=== PATIENT | male | born 1960 | race Caucasian/White ===

== ENCOUNTER 2019-03-08 12:31 | Emergency (ER) | payer OTHER ==
[~2019-03-08] VITALS: Ht 172.7 cm; Wt 79.4 kg
[2019-03-08 12:35] VITALS: BP_SYST 132
--- NOTE | 2019-03-08 12:40 | NUR ---
Patient to ER bed 2 to gown for evaluation. Side rails up. Report given to Katerin
--- NOTE | 2019-03-08 12:42 | NUR ---
Pt brought by self, A&Ox4, pt presents to ER with one episode of chest pressure prior arrival, pt states pressure started in the tongue, no chest retractions noted, skin pink and warm, cap refill <3, pt VSS, pt given Nitro and aspirin, will cont to monitor
--- NOTE | 2019-03-08 12:50 | NUR ---
Dr Mack at bedside examining patient
[2019-03-08 13:36] LABS: EOSINOPHILS # (AUTO) 0.2 K/uL (0.0-0.4); EOSINOPHILS % (AUTO) 2.3 % (0.0-4.0); HEMATOCRIT 42.3 % (36-54); HEMOGLOBIN 14.1 g/dL (14.0-18.0); LYMPHOCYTES # (AUTO) 2.7 K/uL (1.0-5.5); MEAN CORPUSCULAR HEMOGLOBIN 29 pg (27-31); MEAN CORPUSCULAR HGB CONC 33 % (32-36); MEAN CORPUSCULAR VOLUME 88 fL (79.0-98.0); MONOCYTES # (AUTO) 1.6 K/uL (0.0-1.0); MONOCYTES % (AUTO) 15.2 % (1.7-9.3); PLATELET COUNT (AUTO) 202 K/uL (130-430); RED BLOOD CELL COUNT(AUTO) 4.84 MIL/uL (4.2-6.2); RED CELL DISTRIBUTION WIDTH 14.9 % (9.0-15.0); WHITE BLOOD COUNT (AUTO) 10.7 K/uL (4.8-10.8)
--- NOTE | 2019-03-08 13:45 | NUR ---
Pt A&Ox4, VSS, respirations even and unlabored
[2019-03-08 13:48] LABS: CALCIUM 8.7 mg/dL (8.4-11.0); CREATININE 1.68 mg/dL (0.55-1.30); POTASSIUM 3.3 mmol/L (3.5-5.1)
[2019-03-08 13:54] LABS: ALBUMIN 3.4 g/dL (3.4-4.8); TOTAL BILIRUBIN 0.6 mg/dL (0.0-1.0)
[2019-03-08 14:04] LABS: BASOPHILS % (AUTO) 0.1 % (0.0-2.0)
[2019-03-08 14:06] LABS: NEUTROPHILS % (AUTO) 57.4 % (40.0-70.0)
[2019-03-08 14:08] LABS: INR 0.9 (0.80-1.20); PROTHROMBIN TIME 9.5 SECS (9.5-12.5)
--- NOTE | 2019-03-08 16:58 | NUR ---
Nitro 0.4 mg given sublingual x 1 for blood pressure management
[2019-03-08] MEDS ORDERED: NITROGLYCERIN 0.4 MG TAB.SUBL SL ONE (17:00)
[2019-03-08] MEDS ORDERED: ASPIRIN 325 MG TABLET PO ONE (17:00)
--- NOTE | 2019-03-08 17:05 | NUR ---
PER DR. PINO AND [facility] DOC SEND TO [facility] ER FOR CONFIRMATION FOR POSSIBLE STEMI. FAXED EKG : 1708 CALLED [facility]: 1701 -[facility] ER DOC IS REVIEWING EKG'S. -DR. VALDIVIA, [facility] DOC HAS PAGED BACK TO SPEAK TO DR. PINO REGARDING PT STATUS @4032
--- NOTE | 2019-03-08 17:07 | NUR ---
Pt BP decreased to 153/96 to 147/82 after Nitro administration .
--- NOTE | 2019-03-08 17:13 | NUR ---
Per Dr. Mack, the doc from [facility] will speak with the planning analyst at [facility] regarding pt ekg's.
--- NOTE | 2019-03-08 17:26 | NUR ---
TRANSFER INFO [facility] ED Report: [phone] Accepting: Dr. Wren NON-STEMI, but they would like to take pt to [facility] facility. spoke to jass
--- NOTE | 2019-03-08 17:45 | NUR ---
Called [facility] for transport set up. stated that a [place] doc will page back to speak to dr. dyer. spoke to shadia
--- NOTE | 2019-03-08 18:01 | NUR ---
Dr. Cordon, [place] [facility] Doc, paged back to speak to Dr. De Leon regarding pt status.
--- NOTE | 2019-03-08 18:47 | NUR ---
Pt A&Ox4, VSS, respirations even and unlabored, pt denies chest pain, pt on NC 2 L for comfort
--- NOTE | 2019-03-08 19:01 | NUR ---
[facility] to give report about pt's status , accepting MD is Dr Wren, pt on stable condition.
[2019-03-08 19:25] VITALS: BP_SYST 125
--- NOTE | 2019-03-08 19:25 | NUR ---
Patient to be transferred to [facility] . Is being transferred due to higher level of care. Receiving facility has accepting physician and available space. ER physician has signed transfer form. Patient or responsible republican has agreed to transfer and signed form. Patient belongings inventoried and will be sent with patient. Copy of nursing notes, lab reports, EKG, Physicians Orders and X-rays to be sent with patient. Report called to [facility] ER at receiving facility. Receiving physician is Dr Wren. ambulance service has been called for transfer.
== END 2019-03-08 19:25 | disposition home or self-care (01) ==
LOC: SED 12:31
DX: I21.4 Non-ST elevation (NSTEMI) myocardial infarction (principal)
CPT/HCPCS: 36415; 71045; 80053; 83880; 84484; 85025; 85610-TC; 85730-TC; 93005; 99285